=== PATIENT | female | born 1945 | race Caucasian/White ===

== ENCOUNTER 2019-04-14 08:41 | Inpatient (IN) ==
[2019-04-14 09:03] LABS: Basophils % 0.3 %; Eosinophils # 0.1 K/mcL (0.0-0.6); Eosinophils % 0.9 %; Hemoglobin 12.1 g/dL (11.5-15.4); Immature Granulocytes % 0.5 % (0-4); Lymphocytes # 2.6 K/mcL (0.6-4.6); Lymphocytes % 26.7 %; Mean Corpuscular HGB Conc 31.8 g/dL (31.6-35.5); Mean Corpuscular Hemoglobin 25.7 pg (28.0-33.3); Mean Corpuscular Volume 80.7 fL (83.0-100.0); Mean Platelet Volume 10.2 fL (9.4-12.4); Monocytes # 0.5 K/mcL (0.0-1.3); Monocytes % 4.9 %; Neutrophils # 6.5 K/mcL (1.6-8.9); Platelet Count 218 K/mcL (140-400); Red Blood Count 4.71 M/mcL (3.82-4.97); Red Cell Distribution Width 14.6 % (11.5-14.5); Segmented Neutrophils % 66.7 %; White Blood Count 9.8 K/mcL (4.3-11.1)
[2019-04-14] MEDS ORDERED: Isovue-370 500 ML BOTTLE IVP ONE (09:07)
[2019-04-14] MEDS ORDERED: 0.9 % Sodium Chloride 1,000 ML IVC ONE (09:09)
[2019-04-14 09:25] LABS: Calcium 9.8 mg/dL (8.6-10.3); Potassium 3.9 mEq/L (3.5-5.1)
[2019-04-14 09:29] LABS: Troponin I 0.04 ng/mL (< 0.04)
[2019-04-14] MEDS ORDERED: *HR* FentaNYL (PF) 100 MCG/2 ML VIAL IVP ONE (10:49)
[2019-04-14] MEDS ORDERED: *HR* Heparin 5,000 UNIT/ML VIAL IVP PRN ×2 (11:05)
[2019-04-14] MEDS ORDERED: *HR* Heparin 5,000 UNIT/ML VIAL IVP ONE (11:05)
[2019-04-14] MEDS ORDERED: Aspirin 325 MG TABLET PO ONE (11:18)
[2019-04-14] MEDS: Heparin 25,000 UNIT/250 ML D5W 25,000 UNIT/250 ML IV.SOLN IVC SCH (11:37)
[2019-04-14 11:48] LABS: INR 0.9; Prothrombin Time 10.4 Seconds (9.4-12.1)
[2019-04-14] MEDS ORDERED: *HR* Promethazine 25 MG/ML VIAL IVP PRN (11:50)
[2019-04-14] MEDS ORDERED: Ondansetron 4 MG/2 ML VIAL IVP PRN (11:50)
[2019-04-14] MEDS ORDERED: Naloxone 0.4 MG/ML INJ IVP PRN (11:50)
[2019-04-14] MEDS ORDERED: MOM Conc 10 ML UD.LIQ PO PRN (11:50)
[2019-04-14] MEDS ORDERED: Acetaminophen 325 MG TABLET PO PRN (11:50)
[2019-04-14] MEDS ORDERED: Mag Hydrox/Al Hydrox/Simeth 30 ML UDC PO PRN (11:50)
[2019-04-14] MEDS ORDERED: Dextrose Gel 15 GM/37.5 ML TUBE PO PRN ×2 (11:52)
[2019-04-14] MEDS ORDERED: *HR* Dextrose 50 % in Water (Syg) 50 ML SYRINGE IVP PRN (11:52)
[2019-04-14] MEDS ORDERED: D5% in Water 1,000 ML IVC PRN (11:52)
[2019-04-14 11:54] LABS: Heparin anti-factor XA UFH 0.03 IU/mL (0.30-0.70)
[2019-04-14] MEDS ORDERED: Insulin LISPRO 300 UNITS/3 ML VIAL SQ SCH ×2 (16:30→21:00)
[2019-04-14] MEDS: Metoprolol XL (24 HR) Succ 50 MG TAB.ER.24H PO SCH ×2 (18:43→18:45)
[2019-04-14] MEDS ORDERED: Perflutren Lipid Microsphere 1.3 ML in 0.9 % Sodium Chloride 8.7 ML IVP ONE (20:08)
[2019-04-14] MEDS: ALPRAZolam 1 MG TABLET PO PRN (21:55)
[2019-04-14] MEDS: Gabapentin 300 MG CAPSULE PO PRN (21:56)
[2019-04-15 04:06] LABS: Basophils % 0.6 %; Eosinophils # 0.2 K/mcL (0.0-0.6); Eosinophils % 2.2 %; Hematocrit 34.8 % (35.3-44.9); Hemoglobin 11.2 g/dL (11.5-15.4); Immature Granulocytes % 0.6 % (0-4); Lymphocytes # 3.1 K/mcL (0.6-4.6); Lymphocytes % 44.8 %; Mean Corpuscular HGB Conc 32.2 g/dL (31.6-35.5); Mean Corpuscular Hemoglobin 25.9 pg (28.0-33.3); Mean Corpuscular Volume 80.4 fL (83.0-100.0); Mean Platelet Volume 10.8 fL (9.4-12.4); Monocytes # 0.5 K/mcL (0.0-1.3); Monocytes % 6.6 %; Neutrophils # 3.1 K/mcL (1.6-8.9); Platelet Count 210 K/mcL (140-400); Red Blood Count 4.33 M/mcL (3.82-4.97); Red Cell Distribution Width 15.1 % (11.5-14.5); Segmented Neutrophils % 45.2 %; White Blood Count 6.8 K/mcL (4.3-11.1)
[2019-04-15 04:32] LABS: Calcium 9.1 mg/dL (8.6-10.3); Chol/HDL Ratio 5.5 (0-4.9); Potassium 3.9 mEq/L (3.5-5.1)
[2019-04-15 04:43] LABS: Thyroid Stimulating Hormone 2.302 mcIU/mL (0.340-5.600)
[2019-04-15] MEDS: Metoprolol XL (24 HR) Succ 50 MG TAB.ER.24H PO SCH (09:18)
[2019-04-15] MEDS: INSULIN REGULAR SQ SCH (09:19)
[2019-04-15] MEDS: Heparin 25,000 UNIT/250 ML D5W 25,000 UNIT/250 ML IV.SOLN IVC SCH (09:21)
[2019-04-15] MEDS ORDERED: Metoprolol XL (24 HR) Succ 25 MG TAB.ER.24H PO ONE (10:32)
[2019-04-15] MEDS: (Liraglutide [Victoza 2-Pak] 1.8 MG) SQ SCH (15:45)
[2019-04-15] MEDS: Valsartan 80 MG TABLET PO SCH (15:59)
[2019-04-15] MEDS: ALPRAZolam 1 MG TABLET PO PRN (20:43)
[2019-04-15] MEDS: Gabapentin 300 MG CAPSULE PO PRN (20:43)
[2019-04-15] MEDS: traZODone 50 MG TABLET PO PRN (22:00)
[2019-04-16] MEDS ORDERED: Regadenoson 0.4 MG/5 ML SYRINGE IVP ONE (08:34)
[2019-04-16] MEDS: Metoprolol XL (24 HR) Succ 50 MG TAB.ER.24H PO SCH (08:45)
[2019-04-16] MEDS: ARIPiprazole 5 MG TABLET PO SCH (08:46)
[2019-04-16] MEDS: Valsartan 80 MG TABLET PO SCH (08:46)
[2019-04-16] MEDS: Heparin 25,000 UNIT/250 ML D5W 25,000 UNIT/250 ML IV.SOLN IVC SCH (08:54)
[2019-04-16] MEDS: INSULIN REGULAR SQ SCH (13:40)
[2019-04-16] MEDS: (Liraglutide [Victoza 2-Pak] 1.8 MG) SQ SCH (14:09)
[2019-04-16] MEDS: amLODIPine 5 MG TABLET PO SCH (14:09)
[2019-04-16] MEDS ORDERED: NON-FORMULARY MEDICATION 1 EACH EACH (Diclofenac Sodium [Voltaren] 1 APPL) TP PRN (14:12)
[2019-04-16 14:54] LABS: Prothrombin Time 11.1 Seconds (9.4-12.1)
[2019-04-16] MEDS: Insulin LISPRO 300 UNITS/3 ML VIAL SQ SCH (16:54)
[2019-04-16 17:17] LABS: Estimated Average Glucose 220 mg/dl
[2019-04-16] MEDS ORDERED: Warfarin perPT PO PRN (18:00)
[2019-04-16] MEDS ORDERED: *HR* Warfarin 5 MG TABLET PO ONE (18:00)
[2019-04-16] MEDS: ALPRAZolam 1 MG TABLET PO PRN (20:49)
[2019-04-16] MEDS: Gabapentin 300 MG CAPSULE PO PRN (20:49)
[2019-04-17 05:22] LABS: Prothrombin Time 11.3 Seconds (9.4-12.1)
[2019-04-17] MEDS: Heparin 25,000 UNIT/250 ML D5W 25,000 UNIT/250 ML IV.SOLN IVC SCH (07:34)
[2019-04-17] MEDS: Metoprolol XL (24 HR) Succ 50 MG TAB.ER.24H PO SCH (08:22)
[2019-04-17] MEDS: Valsartan 80 MG TABLET PO SCH (08:23)
[2019-04-17] MEDS: ARIPiprazole 5 MG TABLET PO SCH (08:24)
[2019-04-17] MEDS: amLODIPine 5 MG TABLET PO SCH (08:24)
[2019-04-17] MEDS: Insulin LISPRO 300 UNITS/3 ML VIAL SQ SCH ×3 (08:26→17:23)
[2019-04-17] MEDS: (Liraglutide [Victoza 2-Pak] 1.8 MG) SQ SCH (08:30)
[2019-04-17] MEDS: Acetaminophen/Aspirin/Caffeine TABLET PO SCH (08:44)
[2019-04-17] MEDS ORDERED: Insulin DETEMIR 100 UNIT/ML X5UNITS SQ SCH (09:00)
[2019-04-17] MEDS ORDERED: *HR* Warfarin 5 MG TABLET PO ONE (18:00)
[2019-04-17] MEDS: INSULIN REGULAR SQ SCH (21:53)
[2019-04-17] MEDS: Gabapentin 300 MG CAPSULE PO PRN (21:55)
[2019-04-17] MEDS: ALPRAZolam 1 MG TABLET PO PRN (21:55)
[2019-04-18] MEDS: Heparin 25,000 UNIT/250 ML D5W 25,000 UNIT/250 ML IV.SOLN IVC SCH ×2 (03:51→23:17)
[2019-04-18 05:30] LABS: Prothrombin Time 11.6 Seconds (9.4-12.1)
[2019-04-18] MEDS: Insulin LISPRO 300 UNITS/3 ML VIAL SQ SCH ×3 (08:14→17:39)
[2019-04-18] MEDS: Valsartan 80 MG TABLET PO SCH (08:44)
[2019-04-18] MEDS: Metoprolol XL (24 HR) Succ 50 MG TAB.ER.24H PO SCH (08:44)
[2019-04-18] MEDS: amLODIPine 5 MG TABLET PO SCH (08:44)
[2019-04-18] MEDS: ARIPiprazole 5 MG TABLET PO SCH (08:44)
[2019-04-18] MEDS: Acetaminophen/Aspirin/Caffeine TABLET PO SCH (08:49)
[2019-04-18] MEDS: (Liraglutide [Victoza 2-Pak] 1.8 MG) SQ SCH (08:52)
[2019-04-18] MEDS ORDERED: *HR* Warfarin 7.5 MG TABLET PO ONE (18:00)
[2019-04-18] MEDS: INSULIN REGULAR SQ SCH (20:40)
[2019-04-18] MEDS: traZODone 50 MG TABLET PO PRN (23:22)
[2019-04-18] MEDS: ALPRAZolam 1 MG TABLET PO PRN (23:22)
[2019-04-19 05:23] LABS: INR 1.1; Prothrombin Time 12.4 Seconds (9.4-12.1)
[2019-04-19] MEDS: amLODIPine 5 MG TABLET PO SCH (12:04)
[2019-04-19] MEDS: Metoprolol XL (24 HR) Succ 50 MG TAB.ER.24H PO SCH (12:05)
[2019-04-19] MEDS: Valsartan 80 MG TABLET PO SCH (12:05)
[2019-04-19] MEDS: ARIPiprazole 5 MG TABLET PO SCH (12:05)
[2019-04-19] MEDS: Insulin LISPRO 300 UNITS/3 ML VIAL SQ SCH ×3 (12:14→18:55)
[2019-04-19] MEDS: INSULIN REGULAR SQ SCH (12:15)
[2019-04-19] MEDS: (Liraglutide [Victoza 2-Pak] 1.8 MG) SQ SCH (12:21)
[2019-04-19] MEDS ORDERED: *HR* Warfarin 7.5 MG TABLET PO ONE (18:00)
[2019-04-19] MEDS: Heparin 25,000 UNIT/250 ML D5W 25,000 UNIT/250 ML IV.SOLN IVC SCH (21:43)
[2019-04-19] MEDS: traZODone 50 MG TABLET PO PRN (21:44)
[2019-04-19] MEDS: ALPRAZolam 1 MG TABLET PO PRN (21:44)
[2019-04-20 06:08] LABS: INR 1.3; Prothrombin Time 14.9 Seconds (9.4-12.1)
[2019-04-20] MEDS: (Liraglutide [Victoza 2-Pak] 1.8 MG) SQ SCH (08:49)
[2019-04-20] MEDS: amLODIPine 5 MG TABLET PO SCH (08:49)
[2019-04-20] MEDS: Valsartan 80 MG TABLET PO SCH (08:49)
[2019-04-20] MEDS: Metoprolol XL (24 HR) Succ 50 MG TAB.ER.24H PO SCH (08:50)
[2019-04-20] MEDS: ARIPiprazole 5 MG TABLET PO SCH (08:50)
[2019-04-20] MEDS: INSULIN REGULAR SQ SCH (09:01)
[2019-04-20] MEDS ORDERED: *HR* Warfarin 7.5 MG TABLET PO ONE (18:00)
[2019-04-20] MEDS: ALPRAZolam 1 MG TABLET PO PRN (21:30)
[2019-04-20] MEDS: Heparin 25,000 UNIT/250 ML D5W 25,000 UNIT/250 ML IV.SOLN IVC SCH (21:41)
[2019-04-20] MEDS ORDERED: Acetaminophen 325 MG TABLET PO ONE (22:04)
[2019-04-21 05:44] LABS: INR 1.6; Prothrombin Time 17.8 Seconds (9.4-12.1)
[2019-04-21] MEDS: Metoprolol XL (24 HR) Succ 50 MG TAB.ER.24H PO SCH (08:27)
[2019-04-21] MEDS: Aspirin 325 MG TABLET PO SCH (08:27)
[2019-04-21] MEDS: ARIPiprazole 5 MG TABLET PO SCH (08:28)
[2019-04-21] MEDS: Valsartan 80 MG TABLET PO SCH (08:28)
[2019-04-21] MEDS: amLODIPine 5 MG TABLET PO SCH (08:28)
[2019-04-21] MEDS: (Liraglutide [Victoza 2-Pak] 1.8 MG) SQ SCH (08:46)
[2019-04-21] MEDS: INSULIN REGULAR SQ SCH (11:44)
[2019-04-21] MEDS ORDERED: *HR* Warfarin 7.5 MG TABLET PO ONE (18:00)
[2019-04-21] MEDS: Heparin 25,000 UNIT/250 ML D5W 25,000 UNIT/250 ML IV.SOLN IVC SCH (19:09)
[2019-04-21] MEDS: ALPRAZolam 1 MG TABLET PO PRN (21:44)
[2019-04-21] MEDS ORDERED: Acetaminophen 325 MG TABLET PO ONE (21:44)
[2019-04-22 05:47] LABS: INR 1.9; Prothrombin Time 21.7 Seconds (9.4-12.1)
[2019-04-22 07:08] VITALS: BP 155/80
[2019-04-22] MEDS: Aspirin 325 MG TABLET PO SCH (08:41)
[2019-04-22] MEDS: Metoprolol XL (24 HR) Succ 50 MG TAB.ER.24H PO SCH (08:42)
[2019-04-22] MEDS: ARIPiprazole 5 MG TABLET PO SCH (08:42)
[2019-04-22] MEDS: Valsartan 80 MG TABLET PO SCH (08:42)
[2019-04-22] MEDS: amLODIPine 5 MG TABLET PO SCH (08:42)
[2019-04-22] MEDS: (Liraglutide [Victoza 2-Pak] 1.8 MG) SQ SCH (08:45)
[2019-04-22] MEDS ORDERED: *HR* Warfarin 7.5 MG TABLET PO ONE (18:00)
== END 2019-04-22 13:06 | disposition home health service (06) | DRG 175 ==
LOC: EMEROOARM 08:41 → 2NENU 08:41 → SUATTDRO 12:09 → 2NENU 13:00 → SUATTDRO 04-15 17:59
PROVIDERS: ADMIT Internal Medicine; ATTEND Internal Medicine

== ENCOUNTER 2020-07-09 07:58 | Observation (INO) ==
[2020-07-09] MEDS ORDERED: *HR* Dextrose 50 % in Water (Vial) 50 ML VIAL IVP ONE (08:17)
[2020-07-09 08:44] LABS: Bilirubin,Urine Negative (Negative); Blood,Urine Negative (Negative); Clarity,Urine Clear (Clear); Color,Urine Colorless (Yellow); Glucose,Urine (UA) Normal (Normal); Ketones,Urine Negative (Negative); Leukocyte Esterase,Urine Negative (Negative); Nitrite,Urine Negative (Negative); Protein,Urine Negative (Neg-Trace); Specific Gravity,Urine 1.009 (1.010-1.025); Urobilinogen,Urine Normal (Normal)
[2020-07-09 08:46] LABS: Basophils % 0.6 %; Eosinophils # 0.2 K/mcL (0.0-0.6); Eosinophils % 2.8 %; Hematocrit 36.7 % (35.3-44.9); Hemoglobin 10.7 g/dL (11.5-15.4); Immature Granulocytes % 1.3 % (0-4); Lymphocytes # 1.2 K/mcL (0.6-4.6); Lymphocytes % 18.1 %; Mean Corpuscular HGB Conc 29.2 g/dL (31.6-35.5); Mean Corpuscular Hemoglobin 23.6 pg (28.0-33.3); Mean Corpuscular Volume 80.8 fL (83.0-100.0); Mean Platelet Volume 10.4 fL (9.4-12.4); Monocytes # 0.5 K/mcL (0.0-1.3); Monocytes % 7.6 %; Neutrophils # 4.4 K/mcL (1.6-8.9); Platelet Count 272 K/mcL (140-400); Red Blood Count 4.54 M/mcL (3.82-4.97); Red Cell Distribution Width 15.8 % (11.5-14.5); Segmented Neutrophils % 69.6 %; White Blood Count 6.3 K/mcL (4.3-11.1)
[2020-07-09 08:54] LABS: INR 1.4; Prothrombin Time 16.5 Seconds (9.4-12.1)
[2020-07-09 08:58] LABS: Amphetamine Screen,Urine Negative ng/mL (Cutoff=1000); Barbiturate Screen,Urine Negative ng/mL (Cutoff=200); Benzodiazepines Screen,Urine Positive ng/mL (Cutoff=200); Cannabinoid Screen,Urine Negative ng/mL (Cutoff = 50); Cocaine Screen,Urine Negative ng/mL (Cutoff= 300); Opiate Screen,Urine Negative ng/mL (Cutoff=300); Phencyclidine Screen,Urine Negative ng/mL (Cutoff=25)
[2020-07-09 09:08] LABS: Alanine Aminotransferase 14 Units/L (7-52); Albumin 3.9 g/dL (3.5-5.7); Alkaline Phosphatase 76 Units/L (34-104); Aspartate Amino Transferase 13 Units/L (13-39); BUN/Creatinine Ratio 23 (6-26); Bilirubin,Direct 0.1 mg/dL (0.0-0.2); Bilirubin,Indirect 0.1 mg/dL (0.0-1.0); Bilirubin,Total 0.2 mg/dL (0.3-1.0); Blood Urea Nitrogen 42 mg/dL (8-23); Calcium 9.1 mg/dL (8.6-10.3); Carbon Dioxide 26 mEq/L (23-29); Chloride 103 mEq/L (98-107); Ethanol < 10 mg/dL (Less than 10); Globulin 3.9 g/dL (2.4-3.5); Glucose 78 mg/dL (70-105); Osmolality,Calculated 293 (280-300); Potassium 4.2 mEq/L (3.5-5.1); Sodium 137 mEq/L (136-145); Total Protein 7.8 g/dL (6.4-8.9); Troponin I < 0.03 ng/mL (< 0.04); eGFR For African Americans 33 (> 60); eGFR For Non-African Americans 27 (> 60)
[2020-07-09 09:22] LABS: Thyroid Stimulating Hormone 2.658 mcIU/mL (0.340-5.600)
[2020-07-09] MEDS ORDERED: Naloxone 0.4 MG/ML INJ IVP PRN (11:58)
[2020-07-09] MEDS ORDERED: Ondansetron 4 MG/2 ML VIAL IVP PRN (11:58)
[2020-07-09] MEDS ORDERED: Melatonin 3 MG TABLET PO PRN (11:58)
[2020-07-09] MEDS ORDERED: *HR* Dextrose 50 % in Water (Vial) 50 ML VIAL IVP PRN (11:59)
[2020-07-09] MEDS ORDERED: Dextrose Gel 15 GM/37.5 ML TUBE PO PRN ×2 (11:59)
[2020-07-09] MEDS ORDERED: D5% in Water 1,000 ML IVC PRN (11:59)
[2020-07-09] MEDS ORDERED: 0.9 % Sodium Chloride 1,000 ML IVC SCH (12:30)
[2020-07-09] MEDS ORDERED: SUB Q INSULIN DEVICE SQ SCH (15:15)
[2020-07-09] MEDS: *HR* Enoxaparin 100 MG/ML SYRINGE SQ SCH (15:20)
[2020-07-09] MEDS ORDERED: *HR* Insulin Regular U-500 500 UNIT/ML SUBQ SCH (16:30)
[2020-07-09] MEDS ORDERED: ALPRAZolam 1 MG TABLET PO PRN (17:10)
[2020-07-09] MEDS ORDERED: Gabapentin 300 MG CAPSULE PO PRN (17:10)
[2020-07-09] MEDS ORDERED: Warfarin perPT PO PRN (18:00)
[2020-07-09] MEDS ORDERED: *HR* Warfarin 3 MG TABLET PO ONE (18:00)
[2020-07-09] MEDS: traZODone 50 MG TABLET PO SCH (20:11)
[2020-07-10 05:03] LABS: Basophils % 0.5 %; Eosinophils # 0.2 K/mcL (0.0-0.6); Eosinophils % 3.4 %; Hematocrit 36.1 % (35.3-44.9); Hemoglobin 10.6 g/dL (11.5-15.4); Immature Granulocytes % 0.5 % (0-4); Lymphocytes # 1.8 K/mcL (0.6-4.6); Lymphocytes % 29.5 %; Mean Corpuscular HGB Conc 29.4 g/dL (31.6-35.5); Mean Corpuscular Hemoglobin 23.5 pg (28.0-33.3); Mean Platelet Volume 9.9 fL (9.4-12.4); Monocytes # 0.6 K/mcL (0.0-1.3); Monocytes % 9.4 %; Neutrophils # 3.5 K/mcL (1.6-8.9); Platelet Count 277 K/mcL (140-400); Red Blood Count 4.51 M/mcL (3.82-4.97); Red Cell Distribution Width 15.9 % (11.5-14.5); Segmented Neutrophils % 56.7 %; White Blood Count 6.1 K/mcL (4.3-11.1)
[2020-07-10 05:12] LABS: INR 1.7; Prothrombin Time 19.9 Seconds (9.4-12.1)
[2020-07-10 05:24] LABS: Calcium 9.1 mg/dL (8.6-10.3); Magnesium 1.7 mg/dL (1.6-2.6); Phosphorous 2.8 mg/dL (2.7-4.5); Potassium 4.5 mEq/L (3.5-5.1)
[2020-07-10] MEDS: *HR* Acetaminophen w/Cod 300-30 mg 1 TAB TABLET PO PRN ×2 (05:58→20:05)
[2020-07-10] MEDS: ARIPiprazole 2 MG TABLET PO SCH (08:30)
[2020-07-10] MEDS: Metoprolol XL (24 HR) Succ 50 MG TAB.ER.24H PO SCH (08:30)
[2020-07-10] MEDS: amLODIPine 5 MG TABLET PO SCH (08:31)
[2020-07-10] MEDS: Aspirin 325 MG TABLET PO SCH (08:31)
[2020-07-10] MEDS ORDERED: *HR* Insulin Regular U-500 500 UNIT/ML SUBQ SCH (09:00)
[2020-07-10] MEDS ORDERED: Insulin DETEMIR 100 UNIT/ML X5UNITS SUBQ ONE (12:00)
[2020-07-10] MEDS: Insulin LISPRO 300 UNITS/3 ML VIAL SUBQ SCH ×4 (12:29→16:49)
[2020-07-10] MEDS: *HR* Enoxaparin 100 MG/ML SYRINGE SQ SCH (15:32)
[2020-07-10] MEDS ORDERED: *HR* Warfarin 3 MG TABLET PO ONE (18:00)
[2020-07-10] MEDS: traZODone 50 MG TABLET PO SCH (20:03)
[2020-07-10] MEDS: Insulin DETEMIR 100 UNIT/ML X5UNITS SUBQ SCH (20:03)
[2020-07-10] MEDS ORDERED: Insulin DETEMIR 100 UNIT/ML X5UNITS SUBQ SCH (21:00)
[2020-07-11 06:21] LABS: INR 1.8; Prothrombin Time 20.4 Seconds (9.4-12.1)
[2020-07-11 07:50] VITALS: BP 159/80
[2020-07-11] MEDS: *HR* Acetaminophen w/Cod 300-30 mg 1 TAB TABLET PO PRN (08:51)
[2020-07-11 08:52] LABS: Basophils % 0.5 %; Eosinophils # 0.2 K/mcL (0.0-0.6); Eosinophils % 3.6 %; Hematocrit 36.4 % (35.3-44.9); Hemoglobin 10.6 g/dL (11.5-15.4); Immature Granulocytes % 0.4 % (0-4); Lymphocytes # 1.4 K/mcL (0.6-4.6); Lymphocytes % 25.5 %; Mean Corpuscular HGB Conc 29.1 g/dL (31.6-35.5); Mean Corpuscular Volume 79.1 fL (83.0-100.0); Mean Platelet Volume 9.9 fL (9.4-12.4); Monocytes # 0.5 K/mcL (0.0-1.3); Monocytes % 8.9 %; Neutrophils # 3.3 K/mcL (1.6-8.9); Platelet Count 268 K/mcL (140-400); Red Cell Distribution Width 15.6 % (11.5-14.5); Segmented Neutrophils % 61.1 %; White Blood Count 5.5 K/mcL (4.3-11.1)
[2020-07-11] MEDS: ARIPiprazole 2 MG TABLET PO SCH (08:52)
[2020-07-11] MEDS: Metoprolol XL (24 HR) Succ 50 MG TAB.ER.24H PO SCH (08:52)
[2020-07-11] MEDS: Aspirin 325 MG TABLET PO SCH (08:52)
[2020-07-11] MEDS: amLODIPine 5 MG TABLET PO SCH (08:52)
[2020-07-11] MEDS: Insulin LISPRO 300 UNITS/3 ML VIAL SUBQ SCH ×4 (08:53→11:55)
[2020-07-11] MEDS: Insulin DETEMIR 100 UNIT/ML X5UNITS SUBQ SCH (08:54)
[2020-07-11 09:06] LABS: Calcium 9.3 mg/dL (8.6-10.3); Potassium 4.8 mEq/L (3.5-5.1)
== END 2020-07-11 13:02 | disposition home or self-care (01) ==
LOC: 3ANU 07:58 → EMEROOARM 07:58 → SUATTDRO 11:29 → 3ANU 12:50
PROVIDERS: ADMIT Internal Medicine; ATTEND Internal Medicine